=== PATIENT | female | born 1970 | race Caucasian/White ===

== ENCOUNTER → 2016-10-11 | Outpatient (CLI) | payer BC ==
[~2016-10-11] VITALS: Ht 158.8 cm; Wt 83.9 kg
[~2016-10-11] MED LIST: ASPIRIN81 M2 PO; DYAZIDE, MA1 CAPSULE PO; FISH OIL 1,0001 EA11 PO; INDERAL60 MG PO; LIPITOR80 MG PO; MIRALAX17 GM PO; NOHOMEMEDS; PAXIL40 MG PO; PROTONIX40 MG PO
== END | disposition home or self-care (01) ==
LOC: AMB 07:00
PROC: 0DJ08ZZ Inspection of Upper Intestinal Tract, Via Natural or Artificial Opening Endoscopic (ICD-10-PCS; principal; 2016-10-11)
DX: K21.9 Gastro-esophageal reflux disease without esophagitis (principal); I10 Essential (primary) hypertension; F17.200 Nicotine dependence, unspecified, uncomplicated; E78.5 Hyperlipidemia, unspecified; E78.1 Pure hyperglyceridemia; R73.01 Impaired fasting glucose; E66.9 Obesity, unspecified; Z68.34 Body mass index [BMI] 34.0-34.9, adult; R73.03 Prediabetes; Z83.71 Family history of colonic polyps; Z82.3 Family history of stroke; Z82.49 Family history of ischemic heart disease and other diseases of the circulatory system; Z79.82 Long term (current) use of aspirin
CPT/HCPCS: 93005; B4087; J2250; J3010